=== PATIENT | female | born 1995 | race Caucasian/White ===

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

== ENCOUNTER 2019-11-11 10:24 | Emergency (ER) | payer BC, OTHER ==
[2019-11-11 10:53] VITALS: BMI 29.2
--- NOTE | 2019-11-11 12:07 | PDOC ---
Documentation entered by Claudette Hwang SCRIBE, acting as scribe for Hansel Ford MD. Hansel Ford MD: This documentation has been prepared by the ana luisaibJaiden ashley Ana, SCRIBE, under my direction and personally reviewed by me in its entirety. I confirm that the documentation accurately reflects all work, treatment, procedures, and medical decision making performed by me. History of Present Illness - General Chief Complaint: Chest Pain Stated Complaint: CHEST PAIN Time Seen by Provider: 11/11/19 10:49 History Source: Patient Exam Limitations: No Limitations - History of Present Illness Initial Comments: 11/11/19 10:56 Patient is a 23 year old female with no significant past medical history of who presents to the ED with chest pain since earlier today. Patient stated she was at work when she suddenly began to feel chest "tightness" and a "squeezing sensation" which radiated to her left shoulder. Patient said her pain level was a 7/10 when standing up along with dizziness and that the pain level went down to a 3/10 when laying down. Patient reports that it hurts when she attempts to take a deep breath but denies SOB. Patient said she felt like she "was going to faint". Patient endorses: current chest pain. Patient denies: fever, chills, cough, lower extremity edema, history of blood clots, smoking, recreational drug use, or any other related symptoms. Allergies: NKDA Family history: multiple family members from heart attacks. Past History - Medical History Allergies/Adverse Reactions: Allergies Allergy/AdvReac Type Severity Reaction Status Date / Time No Known Allergies Allergy Verified 10/12/16 21:33 COPD: No - Reproductive History Is Patient Now?: No - Psycho-Social/Smoking History Smoking History: Never smoked Information on smoking cessation initiated: No - Substance Abuse Hx (Audit-C & DAST Scrn) How often the patient has a drink containing alcohol: Monthly or less Score: In Men: 4 or > Positive; In Women: 3 or > Positive: 1 Screen Result (Pos requires Nsg. Audit-10AR): Negative In the last yr the pt used illegal drug/Rx for NonMed reason: No Score: Yes response is considered Positive: 0 Screen Result (Positive result requires Nsg. DAST-10): Negative Review of Systems - Review of Systems Able to Perform ROS?: Yes Comments:: 11/11/19 10:58 GENERAL/CONSTITUTIONAL: No fever or chills. HEAD, EYES, EARS, NOSE AND THROAT: No ear pain or discharge. No sore throat. CARDIOVASCULAR: + Chest pain. + Pain with deep breaths. No loss of consciousness RESPIRATORY: No cough, wheezing, or hemoptysis. GASTROINTESTINAL: No nausea, vomiting, diarrhea or constipation. GENITOURINARY: No dysuria, frequency, or change in urination. MUSCULOSKELETAL: + Left shoulder pain. No neck or back pain. SKIN: No rash NEUROLOGIC: No vertigo. ENDOCRINE: No increased thirst. No abnormal weight change. HEMATOLOGIC/LYMPHATIC: No anemia, easy bleeding, or history of blood clots. ALLERGIC/IMMUNOLOGIC: No hives or skin allergy. *Physical Exam - Vital Signs Last Vital Signs Temp Pulse Resp BP Pulse Ox 99.0 F 80 19 131/79 99 11/11/19 10:40 11/11/19 10:40 11/11/19 10:40 11/11/19 10:40 11/11/19 10:40 - Physical Exam 11/11/19 10:58 GENERAL: Awake, alert, and fully oriented, in no acute distress. HEAD: No signs of trauma EYES: PERRLA, EOMI, sclera anicteric, conjunctiva clear ENT: Auricles normal inspection, hearing grossly normal, nares patent, oropharynx clear without exudates. Moist mucosa NECK: Nontender, no stepoffs, Normal ROM, supple, no lymphadenopathy, JVD, or masses LUNGS: Breath sounds equal, clear to auscultation bilaterally. No wheezes, and no crackles HEART: Regular rate and rhythm, normal S1 and S2, no murmurs, rubs or gallops ABDOMEN: Soft, nontender, normoactive bowel sounds. No guarding, no rebound. No masses EXTREMITIES: Normal range of motion, no edema. No clubbing or cyanosis. No cords, erythema, or tenderness NEUROLOGICAL: Cranial nerves II through XII intact. 5/5 strength and sensation in all extremities, Normal speech, normal gait, normal cerebellar function SKIN: Warm, Dry, normal turgor, no rashes or lesions noted. Heart Score/ECG Review - History History: Slightly suspicious - Electrocardiogram EKG: Normal - Age Age: </= 45 - Risk Factors Risk Factors Heart Score: Yes Positive family hx of cardiac disease Based on the list above the patient has:: 1-2 risk factors - Troponin Troponin: </= normal limit - Score Heart Score - Total: 1 - ECG Impressions Comment:: 11/11/19 12:16 NSR, no CONCEPCION/STDs, no TWIs, axis wnl, Intervals wnl, rate 76 ED Treatment Course - LABORATORY CBC & Chemistry Diagram: 11/11/19 11:40 11/11/19 11:40 Medical Decision Making - Medical Decision Making 11/11/19 12:17 23 F with pleuritic chest pain. EKG without evidence of ischemia. No CONCEPCION/FL depression to suggest pericarditis. Pt without clinical signs of DVT. - Labs, trop, ddimer - CXR - Toradol IM 11/11/19 12:55 Labs wnl Ddimer negative Trop negative (>3 hours since onset of pain) CXR clear Pt reassessed - pain much improved with toradol Suspect msk pain Pt is well appearing, with normal vitals. Clinically stable for DC at this time. I discussed the physical exam findings, ancillary test results and final diagnoses with the patient. I answered all of the patient's questions. The patient was satisfied with the care received and felt comfortable with the discharge plan and treatment plan. The patient agrees to follow up with the primary care physician within 24-72 hours. Discharge - Discharge Information Problems reviewed: Yes Clinical Impression/Diagnosis: Chest pain Disposition: HOME - Follow up/Referral Referrals: Amol Szymanski MD [Staff Physician] - - Patient Discharge Instructions Patient Printed Discharge Instructions: DI for Atypical Chest Pain Additional Instructions: Your bloodwork, chest X ray, and EKG were all normal today. However, this does not rule out all serious medical problems. You must follow up with your primary doctor for further evaluation of your chest pain. You should also follow up with a crossing tender given your family history of heart disease. If you experience worsening pain, shortness of breath, or any other concerning symptoms, return to the ER immediately. - Post Discharge Activity Work/Back to School Note: Back to Work
[2019-11-11] MEDS ORDERED: KETOROLAC TROMETHAMINE 30 MG/1 ML VIAL IM ONE (12:19)
[2019-11-11] MEDS ORDERED: KETOROLAC TROMETHAMINE 30 MG/1 ML VIAL ONE (12:21)
[2019-11-11 12:22] LABS: BASO % 0.6 % (0-2.0); EOS % 2.1 % (0-4.5); HEMATOCRIT 37.7 % (32.4-45.2); HEMOGLOBIN 12.4 GM/dL (10.7-15.3); LYMPH % 22.2 % (8-40); MCH 29.3 pg (25.7-33.7); MEAN CELL VOLUME 88.7 fl (80-96); MEAN PLT VOLUME 10.2 fl (7.5-11.1); MONO % 5.3 % (3.8-10.2); NEUT % 69.8 % (42.8-82.8); PLATELET COUNT 240 K/MM3 (134-434); RBC 4.25 M/mm3 (3.60-5.2); RDW 13.7 % (11.6-15.6); WHITE BLOOD COUNT 7.4 K/mm3 (4.0-10.0)
[2019-11-11 12:43] LABS: ALBUMIN 4.1 g/dl (3.4-5.0); ALK PHOS 58 U/L (45-117); ANION GAP 8 MMOL/L (8-16); BILIRUBIN,TOTAL 0.3 mg/dL (0.2-1); BLOOD UREA NITROGEN 10.3 mg/dL (7-18); CALCIUM 9.1 mg/dL (8.5-10.1); CHLORIDE 110 mmol/L (98-107); CO2 24 mmol/L (21-32); CREATININE 0.6 mg/dL (0.55-1.3); GLUCOSE,RANDOM 89 mg/dL (74-106); SGOT/AST 25 U/L (15-37); SGPT/ALT 26 U/L (13-61); SODIUM 142 mmol/L (136-145); TOT PROT 7.4 g/dl (6.4-8.2)
--- NOTE | 2019-11-11 13:10 | EKG ---
Test Reason : Blood Pressure : / mmHG Vent. Rate : 076 BPM Atrial Rate : 076 BPM P-R Int : 156 ms QRS Dur : 088 ms QT Int : 388 ms P-R-T Axes : 055 030 050 degrees QTc Int : 436 ms NORMAL SINUS RHYTHM NORMAL ECG NO PREVIOUS ECGS AVAILABLE Confirmed by MD ENID, CHERELLE ([id number]) on 11/11/2019 1:10:08 PM Referred By: Confirmed By:CHERELLE ROSSI MD
[2019-11-11 13:14] VITALS: BP 108/58; PULSE 75; TEMP 98.9
== END 2019-11-11 13:15 | disposition home or self-care (01) ==
LOC: JER 10:24
PROC: 3E0233Z Introduction of Anti-inflammatory into Muscle, Percutaneous Approach (ICD-10-PCS; principal; 2019-11-11)
DX: R07.9 Chest pain, unspecified (principal)
CPT/HCPCS: 36415; 71045-TC-FY; 80053; 82550; 82553; 83036; 84443; 84484; 84703; 85025; 85379; 93005; 93010; 99285-25

== ENCOUNTER 2021-04-26 10:46 | Emergency (ER) | payer OTHER, BC ==
[2021-04-26] MEDS ORDERED: IBUPROFEN 600 MG TABLET (FP) PO ONE ×2 (10:56→11:03)
[2021-04-26 11:16] VITALS: BP 121/65; PULSE 107; TEMP 98.1; BMI 31.6
== END 2021-04-26 13:10 | disposition home or self-care (01) ==
LOC: FER 10:46
DX: M25.571 Pain in right ankle and joints of right foot (principal); V58.5XXA Driver of pick-up truck or van injured in noncollision transport accident in traffic accident, initial encounter
CPT/HCPCS: 73610-TC-RT-FY; 73630-TC-RT-FY; 99283-25